=== PATIENT | male | born 1940 | race Caucasian/White ===

== ENCOUNTER 2020-07-02 09:29 | Inpatient (IN) | payer MEDICARE, OTHER ==
[2020-06-29 14:57] LABS: BASOPHILS % 0.3 % (0.0-1.0); EOSINOPHILS # (AUTO) 0.1 (0.0-0.4); EOSINOPHILS % 1.8 % (0.0-6.0); HEMATOCRIT 38.7 % (38.2-49.6); HEMOGLOBIN 12.5 g/dL (14.0-18.0); LYMPHOCYTES # (AUTO) 1.5 (1.0-3.2); LYMPHOCYTES % 24.6 % (18.0-39.1); MEAN CORPUSCULAR HEMOGLOBIN 28.3 pg (28-32); MEAN CORPUSCULAR HGB CONC 32.3 g/dL (31-35); MEAN CORPUSCULAR VOLUME 87.6 fL (81-99); MONOCYTES # (AUTO) 0.7 (0.2-0.8); MONOCYTES % 10.9 % (4.4-11.3); NEUTROPHILS # (AUTO) 3.9 (2.1-6.9); NEUTROPHILS % 62.1 % (38.7-80.0); PLATELET COUNT 140 x10e3/uL (140-360); RED BLOOD COUNT 4.42 x10e6/uL (4.3-5.7); RED CELL DISTRIBUTION WIDTH 14.1 % (11.7-14.4)
[2020-06-29 15:15] LABS: INR 1.23; PROTHROMBIN TIME 16.1 seconds (11.9-14.5)
[2020-06-29 15:43] LABS: ALANINE AMINOTRANSFERASE 16 IU/L (0-55); ALBUMIN 3.8 g/dL (3.5-5.0); ALBUMIN/GLOBULIN RATIO 1.4 (0.8-2.0); ALKALINE PHOSPHATASE 46 IU/L (40-150); ANION GAP 14.5 mmol/L (8-16); BLOOD UREA NITROGEN 23 mg/dL (7-26); BUN/CREATININE RATIO 21 (6-25); CALCIUM 9.2 mg/dL (8.4-10.2); CARBON DIOXIDE 26 mmol/L (22-29); CHLORIDE 104 mmol/L (98-107); CREATININE, SERUM 1.07 mg/dL (0.72-1.25); EST GLOMERULAR FILTRATION RATE > 60 ML/MIN (60-); GLUCOSE 79 mg/dL (74-118); POTASSIUM 4.5 mmol/L (3.5-5.1); SODIUM 140 mmol/L (136-145)
[2020-07-02] VITALS (17 sets, daily range): BP systolic 92–120; BP diastolic 41–77
[~2020-07-02] VITALS: Ht 180.3 cm; Wt 113.4 kg
[~2020-07-02 09:29] MED LIST: ACETAMINOPHEN500 M1 PO; ASPIRIN EC81 MG PO; CALCIUM PO; COQ-10100 MG PO; EMERGEN-C 1,01000 MG PO; FENTANYL CITRATE/PF 100MCG/2 ML INJ ONE; FISH OIL 1,2001 EACH PO; GLUCOSAMINE &1 EACH PO; HAIR SKIN NAIL1 EACH PO; HEPARIN SOD (PORCINE) 1000 UNIT/ML 30ML ONE; HEPARIN SOD/SOD CHLORIDE 2,000 ML ONE; IOPAMIDOL 370 MG/ML 200 ML INFUS..BTL INJ ONE; L-GLUTAMINE25 G1 PO; LASIX20 MG PO; LIDOCAINE HCL 2% LOCAL 20 ML VIAL ONE; LISINOPRIL5 MG PO; MIDAZOLAM HCL 2 MG/2 ML VIAL ONE; MULTIVITAMIN1 EACH PO; NITROGLYCERIN/D5W 200 MCG/ML 250 ML ONE; SODIUM CHLORIDE 0.9% 1000ML 1,000 ML ONE; VERAPAMIL HCL 2.5 MG/ML 2 ML VIAL ONE; VITAMIN B-12500 MCG PO; VITAMIN C1000 MG PO
[2020-07-02] MEDS ORDERED: FUROSEMIDE 40 MG TAB PO SCH (18:00)
[2020-07-02] MEDS: FUROSEMIDE 40 MG TAB PO SCH (20:55)
[2020-07-02] MEDS: EMERGEN C PO SCH (21:00)
[2020-07-02] MEDS: GLUTAMINE PO SCH (21:00)
[2020-07-03] VITALS: BP 103/57
[2020-07-03 04:00] VITALS: BP 116/67
[2020-07-03 05:16] LABS: BASOPHILS % 0.4 % (0.0-1.0); EOSINOPHILS # (AUTO) 0.1 (0.0-0.4); EOSINOPHILS % 1.5 % (0.0-6.0); HEMATOCRIT 39.6 % (38.2-49.6); HEMOGLOBIN 12.6 g/dL (14.0-18.0); LYMPHOCYTES # (AUTO) 1.5 (1.0-3.2); LYMPHOCYTES % 27.9 % (18.0-39.1); MEAN CORPUSCULAR HEMOGLOBIN 27.5 pg (28-32); MEAN CORPUSCULAR HGB CONC 31.8 g/dL (31-35); MEAN CORPUSCULAR VOLUME 86.5 fL (81-99); MONOCYTES # (AUTO) 0.6 (0.2-0.8); MONOCYTES % 12.3 % (4.4-11.3); NEUTROPHILS % 57.5 % (38.7-80.0); PLATELET COUNT 153 x10e3/uL (140-360); RED BLOOD COUNT 4.58 x10e6/uL (4.3-5.7)
[2020-07-03 05:52] LABS: ALANINE AMINOTRANSFERASE 14 IU/L (0-55); ALBUMIN 3.5 g/dL (3.5-5.0); ALBUMIN/GLOBULIN RATIO 1.3 (0.8-2.0); ALKALINE PHOSPHATASE 44 IU/L (40-150); ANION GAP 14.7 mmol/L (8-16); BLOOD UREA NITROGEN 22 mg/dL (7-26); BUN/CREATININE RATIO 26 (6-25); CARBON DIOXIDE 22 mmol/L (22-29); CHLORIDE 108 mmol/L (98-107); CREATININE, SERUM 0.86 mg/dL (0.72-1.25); EST GLOMERULAR FILTRATION RATE > 60 ML/MIN (60-); GLUCOSE 79 mg/dL (74-118); POTASSIUM 4.7 mmol/L (3.5-5.1); SODIUM 140 mmol/L (136-145)
[2020-07-03] MEDS: ASPIRIN 81 MG ENTERIC COATED PO SCH (08:26)
[2020-07-03] MEDS: FUROSEMIDE 40 MG TAB PO SCH ×2 (08:28→17:00)
[2020-07-03] MEDS: [UNRECOGNIZED DRUG - OTHER] PO SCH (08:28)
[2020-07-03] MEDS: COENZYME Q10 100 MG PO SCH (08:28)
[2020-07-03] MEDS: CHONDROITIN PO SCH (08:28)
[2020-07-03] MEDS: GLUCOSAMINE PO SCH (08:28)
[2020-07-03] MEDS: OMEGA 3 POLYUNSAT FATTY ACIDS 1000 MG SOFTGEL PO SCH ×2 (08:28→17:00)
[2020-07-03] MEDS: MULTIVITAMINS/MINERALS TAB PO SCH (08:28)
[2020-07-03] MEDS: CYANOCOBALAMIN 1,000 MCG TAB PO SCH (08:30)
[2020-07-03] MEDS: CALCIUM CARBONATE 500 MG CHEWABLE TABS PO SCH ×2 (08:30→17:00)
[2020-07-03] MEDS: ASCORBIC ACID 500 MG TAB PO SCH ×2 (08:30→17:00)
[2020-07-03] MEDS: LISINOPRIL 2.5 MG TAB PO SCH (08:31)
[2020-07-03 08:37] VITALS: BP 127/72
[2020-07-03] MEDS ORDERED: ACETAMINOPHEN 325 MG TAB PO SCH (09:00)
[2020-07-03 11:51] VITALS: BP 123/67
[2020-07-03] MEDS ORDERED: MIDAZOLAM HCL 2 MG/2 ML VIAL ONE ×3 (14:55→18:14)
[2020-07-03] MEDS ORDERED: FENTANYL CITRATE/PF 100MCG/2 ML INJ ONE (14:55)
[2020-07-03] MEDS ORDERED: LIDOCAINE HCL 2% LOCAL 20 ML VIAL ONE (14:55)
[2020-07-03] MEDS ORDERED: VANCOMYCIN 1GM/NS 250 ML 500 ML ONE (14:56)
[2020-07-03] MEDS ORDERED: SODIUM CHLORIDE 0.9% 500ML 500 ML ONE (14:56)
[2020-07-03] MEDS ORDERED: IOPAMIDOL 300MG/ML 100 ML INFUS..BTL IV ONE (14:57)
[2020-07-03] MEDS ORDERED: SODIUM CHLORIDE 0.9% 1000ML 2,000 ML ONE (14:57)
[2020-07-03 20:00] VITALS: BP 111/72
[2020-07-03] MEDS: EMERGEN C PO SCH (21:00)
[2020-07-03] MEDS: GLUTAMINE PO SCH (21:00)
[2020-07-04] VITALS (8 sets, daily range): BP systolic 112–144; BP diastolic 64–98
[2020-07-04] MEDS: COENZYME Q10 100 MG PO SCH (09:00)
[2020-07-04] MEDS: CHONDROITIN PO SCH (09:00)
[2020-07-04] MEDS: [UNRECOGNIZED DRUG - OTHER] PO SCH (09:00)
[2020-07-04] MEDS: GLUCOSAMINE PO SCH (09:00)
[2020-07-04] MEDS: MULTIVITAMINS/MINERALS TAB PO SCH (09:09)
[2020-07-04] MEDS: OMEGA 3 POLYUNSAT FATTY ACIDS 1000 MG SOFTGEL PO SCH ×3 (09:10→17:27)
[2020-07-04] MEDS: LISINOPRIL 2.5 MG TAB PO SCH (09:11)
[2020-07-04] MEDS: CALCIUM CARBONATE 500 MG CHEWABLE TABS PO SCH ×2 (09:11→17:27)
[2020-07-04] MEDS: CYANOCOBALAMIN 1,000 MCG TAB PO SCH (09:11)
[2020-07-04] MEDS: ASCORBIC ACID 500 MG TAB PO SCH ×2 (09:11→17:27)
[2020-07-04] MEDS: ASPIRIN 81 MG ENTERIC COATED PO SCH (09:12)
[2020-07-04] MEDS: FUROSEMIDE 40 MG TAB PO SCH ×2 (09:12→17:28)
[2020-07-04] MEDS: ACETAMINOPHEN 325 MG TAB PO PRN ×2 (10:15→18:46)
[2020-07-04] MEDS: GLUTAMINE PO SCH (21:00)
[2020-07-04] MEDS: EMERGEN C PO SCH (21:00)
[2020-07-05] VITALS (8 sets, daily range): BP systolic 111–129; BP diastolic 64–85
[2020-07-05] MEDS ORDERED: METOPROLOL SUCCINATE 25 MG TAB XL PO SCH (09:00)
[2020-07-05] MEDS: GLUCOSAMINE PO SCH (09:00)
[2020-07-05] MEDS: CHONDROITIN PO SCH (09:00)
[2020-07-05] MEDS: LISINOPRIL 2.5 MG TAB PO SCH (09:00)
[2020-07-05] MEDS: [UNRECOGNIZED DRUG - OTHER] PO SCH (09:00)
[2020-07-05] MEDS: COENZYME Q10 100 MG PO SCH (09:00)
[2020-07-05] MEDS ORDERED: LISINOPRIL 2.5 MG TAB PO SCH (09:00)
[2020-07-05] MEDS: CALCIUM CARBONATE 500 MG CHEWABLE TABS PO SCH ×2 (09:08→18:23)
[2020-07-05] MEDS: ASPIRIN 81 MG ENTERIC COATED PO SCH (09:08)
[2020-07-05] MEDS: FUROSEMIDE 20 MG TAB PO SCH (09:08)
[2020-07-05] MEDS: ACETAMINOPHEN 325 MG TAB PO PRN (09:08)
[2020-07-05] MEDS: CYANOCOBALAMIN 1,000 MCG TAB PO SCH (09:09)
[2020-07-05] MEDS: ASCORBIC ACID 500 MG TAB PO SCH ×2 (09:10→18:23)
[2020-07-05] MEDS: OMEGA 3 POLYUNSAT FATTY ACIDS 1000 MG SOFTGEL PO SCH ×2 (09:41→18:23)
[2020-07-05] MEDS: MULTIVITAMINS/MINERALS TAB PO SCH (09:41)
[2020-07-05] MEDS: MINOCYCLINE HCL 50 MG CAP PO SCH ×2 (09:41→21:06)
[2020-07-05] MEDS ORDERED: MORPHINE SULFATE 2 MG/ML SYR 1ML IV PRN (15:00)
[2020-07-05] MEDS: GLUTAMINE PO SCH (21:00)
[2020-07-05] MEDS: EMERGEN C PO SCH (21:00)
[2020-07-06] VITALS (7 sets, daily range): BP systolic 94–124; BP diastolic 72–93
[2020-07-06] MEDS: COENZYME Q10 100 MG PO SCH (08:15)
[2020-07-06] MEDS: [UNRECOGNIZED DRUG - OTHER] PO SCH (08:15)
[2020-07-06] MEDS: CHONDROITIN PO SCH (08:15)
[2020-07-06] MEDS: GLUCOSAMINE PO SCH (08:15)
[2020-07-06] MEDS: CALCIUM CARBONATE 500 MG CHEWABLE TABS PO SCH ×2 (08:55→18:44)
[2020-07-06] MEDS: FUROSEMIDE 20 MG TAB PO SCH (08:55)
[2020-07-06] MEDS: MULTIVITAMINS/MINERALS TAB PO SCH (08:55)
[2020-07-06] MEDS: ASCORBIC ACID 500 MG TAB PO SCH ×2 (08:55→18:44)
[2020-07-06] MEDS: OMEGA 3 POLYUNSAT FATTY ACIDS 1000 MG SOFTGEL PO SCH ×2 (08:55→18:44)
[2020-07-06] MEDS: CYANOCOBALAMIN 1,000 MCG TAB PO SCH (08:55)
[2020-07-06] MEDS: ASPIRIN 81 MG ENTERIC COATED PO SCH (08:55)
[2020-07-06] MEDS: MINOCYCLINE HCL 50 MG CAP PO SCH ×2 (08:55→21:18)
[2020-07-06] MEDS: LISINOPRIL 2.5 MG TAB PO SCH (09:17)
[2020-07-06] MEDS: METOPROLOL SUCCINATE 50 MG TAB XL PO SCH (09:18)
[2020-07-06] MEDS: TRAMADOL HCL 50 MG TAB PO PRN ×2 (13:11→21:18)
[2020-07-06] MEDS ORDERED: METOPROLOL SUCCINATE 50 MG TAB XL PO ONE (20:30)
[2020-07-06] MEDS: EMERGEN C PO SCH (21:00)
[2020-07-06] MEDS: GLUTAMINE PO SCH (21:00)
[2020-07-06] MEDS ORDERED: DIGOXIN INJ 0.25 MG/ML 2 ML AMP IV ONE (22:45)
[2020-07-07] VITALS: BP 96/77
[2020-07-07 04:00] VITALS: BP 110/76
[2020-07-07 07:26] VITALS: BP 110/76
[2020-07-07] MEDS: GLUCOSAMINE PO SCH (09:00)
[2020-07-07] MEDS: CHONDROITIN PO SCH (09:00)
[2020-07-07] MEDS: COENZYME Q10 100 MG PO SCH (09:00)
[2020-07-07] MEDS: [UNRECOGNIZED DRUG - OTHER] PO SCH (09:00)
[2020-07-07] MEDS: ASPIRIN 81 MG ENTERIC COATED PO SCH (09:52)
[2020-07-07] MEDS: CALCIUM CARBONATE 500 MG CHEWABLE TABS PO SCH ×2 (09:54→16:55)
[2020-07-07] MEDS: ASCORBIC ACID 500 MG TAB PO SCH ×2 (09:54→16:55)
[2020-07-07] MEDS: LISINOPRIL 2.5 MG TAB PO SCH (09:54)
[2020-07-07] MEDS: CYANOCOBALAMIN 1,000 MCG TAB PO SCH (09:54)
[2020-07-07] MEDS: OMEGA 3 POLYUNSAT FATTY ACIDS 1000 MG SOFTGEL PO SCH ×2 (09:54→16:55)
[2020-07-07] MEDS: METOPROLOL SUCCINATE 50 MG TAB XL PO SCH ×3 (09:54→16:55)
[2020-07-07] MEDS: MINOCYCLINE HCL 50 MG CAP PO SCH ×2 (09:54→21:08)
[2020-07-07] MEDS: MULTIVITAMINS/MINERALS TAB PO SCH (09:54)
[2020-07-07] MEDS: FUROSEMIDE 20 MG TAB PO SCH (09:54)
[2020-07-07 12:00] VITALS: BP 123/95
[2020-07-07] MEDS: AMIODARONE HCL 200 MG TAB PO SCH ×2 (12:03→16:55)
[2020-07-07 16:55] VITALS: BP 110/75
[2020-07-07 20:00] VITALS: BP 102/71
[2020-07-07] MEDS: GLUTAMINE PO SCH (21:00)
[2020-07-07] MEDS: EMERGEN C PO SCH (21:00)
[2020-07-08 00:11] VITALS: BP 100/72
[2020-07-08 04:05] VITALS: BP 91/63
[2020-07-08 07:30] VITALS: BP 107/79
[2020-07-08] MEDS: CHONDROITIN PO SCH (09:00)
[2020-07-08] MEDS: GLUCOSAMINE PO SCH (09:00)
[2020-07-08] MEDS: [UNRECOGNIZED DRUG - OTHER] PO SCH (09:00)
[2020-07-08] MEDS: COENZYME Q10 100 MG PO SCH (09:00)
[2020-07-08] MEDS: ASPIRIN 81 MG ENTERIC COATED PO SCH (09:13)
[2020-07-08] MEDS: FUROSEMIDE 20 MG TAB PO SCH (09:14)
[2020-07-08] MEDS: AMIODARONE HCL 200 MG TAB PO SCH (09:14)
[2020-07-08] MEDS: CYANOCOBALAMIN 1,000 MCG TAB PO SCH (09:15)
[2020-07-08] MEDS: OMEGA 3 POLYUNSAT FATTY ACIDS 1000 MG SOFTGEL PO SCH (09:15)
[2020-07-08] MEDS: MULTIVITAMINS/MINERALS TAB PO SCH (09:15)
[2020-07-08] MEDS: MINOCYCLINE HCL 50 MG CAP PO SCH (09:15)
[2020-07-08] MEDS: CALCIUM CARBONATE 500 MG CHEWABLE TABS PO SCH (09:15)
[2020-07-08] MEDS: ASCORBIC ACID 500 MG TAB PO SCH (09:15)
[2020-07-08] MEDS: LISINOPRIL 2.5 MG TAB PO SCH (09:17)
[2020-07-08] MEDS: METOPROLOL SUCCINATE 50 MG TAB XL PO SCH (09:17)
[2020-07-08 10:13] VITALS: BP 107/79
[2020-07-08 11:00] VITALS: BP 106/80
[2020-07-10] MEDS ORDERED: FUROSEMIDE 40 MG TAB PO SCH (09:00)
== END 2020-07-08 15:44 | DRG 245 ==
LOC: CATH LAB 09:29 → CATH LAB V 14:08 → UNDOADMOB 14:08 → IMCU 16:35 → OBSVTOIN 07-04 14:38
PROVIDERS: ADMIT Internal Medicine Cardiovascular Disease; ATTEND Internal Medicine Cardiovascular Disease
PROC: 4A023N7 Measurement of Cardiac Sampling and Pressure, Left Heart, Percutaneous Approach (ICD-10-PCS; 2020-07-02)
PROC: B2111ZZ Fluoroscopy of Multiple Coronary Arteries using Low Osmolar Contrast (ICD-10-PCS; 2020-07-02)
PROC: 0JH609Z Insertion of Cardiac Resynchronization Defibrillator Pulse Generator into Chest Subcutaneous Tissue and Fascia, Open Approach (ICD-10-PCS; principal; 2020-07-03)
PROC: 02H Heart and Great Vessels, Insertion (ICD-10-PCS; 2020-07-03)
PROC: 02HK0JZ Insertion of Pacemaker Lead into Right Ventricle, Open Approach (ICD-10-PCS; 2020-07-03)
PROC: 02H60JZ Insertion of Pacemaker Lead into Right Atrium, Open Approach (ICD-10-PCS; 2020-07-03)
DX: I42.0 Dilated cardiomyopathy (principal); I50.22 Chronic systolic (congestive) heart failure; I48.92 Unspecified atrial flutter; R00.1 Bradycardia, unspecified; R53.81 Other malaise; I44.7 Left bundle-branch block, unspecified; I11.0 Hypertensive heart disease with heart failure; Z20.828 Contact with and (suspected) exposure to other viral communicable diseases; I25.10 Atherosclerotic heart disease of native coronary artery without angina pectoris
CPT/HCPCS: 33225; 33249; 36415; 71045; 75820; 76937; 80053; 82948; 85025; 85610; 93005; 93454; 97139; 99152; 99153; C1769; C1777; C1882; C1898; C1900; G0378; J1160; J1644; J2001; J2250; J3010; J3370; J7030; J7040; Q9967; U0002

== ENCOUNTER → 2020-09-17 | Day surgery (SDC) | payer MEDICARE ==
[2020-09-14 14:49] LABS: BASOPHILS % 0.5 % (0.0-1.0); EOSINOPHILS # (AUTO) 0.2 (0.0-0.4); EOSINOPHILS % 2.5 % (0.0-6.0); HEMATOCRIT 43.4 % (38.2-49.6); HEMOGLOBIN 14.3 g/dL (14.0-18.0); LYMPHOCYTES # (AUTO) 1.9 (1.0-3.2); LYMPHOCYTES % 24.5 % (18.0-39.1); MEAN CORPUSCULAR HEMOGLOBIN 27.6 pg (28-32); MEAN CORPUSCULAR HGB CONC 32.9 g/dL (31-35); MEAN CORPUSCULAR VOLUME 83.6 fL (81-99); MONOCYTES # (AUTO) 0.9 (0.2-0.8); MONOCYTES % 11.7 % (4.4-11.3); NEUTROPHILS # (AUTO) 4.6 (2.1-6.9); NEUTROPHILS % 60.5 % (38.7-80.0); PLATELET COUNT 187 x10e3/uL (140-360); RED BLOOD COUNT 5.19 x10e6/uL (4.3-5.7); RED CELL DISTRIBUTION WIDTH 15.8 % (11.7-14.4)
[2020-09-14 15:02] LABS: INR 1.16; PROTHROMBIN TIME 15.6 seconds (11.9-14.5)
[2020-09-14 15:09] LABS: ALBUMIN 3.8 g/dL (3.5-5.0); ALBUMIN/GLOBULIN RATIO 1.2 (0.8-2.0); ANION GAP 14.9 mmol/L (8-16); CALCIUM 9.6 mg/dL (8.4-10.2); CREATININE, SERUM 1.65 mg/dL (0.72-1.25); POTASSIUM 3.9 mmol/L (3.5-5.1)
[2020-09-17] VITALS (8 sets, daily range): BP systolic 94–103; BP diastolic 65–69
[~2020-09-17] VITALS: Ht 180.3 cm; Wt 95.3 kg
[~2020-09-17] MED LIST changes: +AMIODARONE HCL200 MG PO; +BENZOCAINE 20% SPR 60 ML CAN ONE; +ELIQUIS2.5 MG PO; -FENTANYL CITRATE/PF 100MCG/2 ML INJ ONE; +FUROSEMIDE40 MG PO; -HEPARIN SOD (PORCINE) 1000 UNIT/ML 30ML ONE; -HEPARIN SOD/SOD CHLORIDE 2,000 ML ONE; -IOPAMIDOL 370 MG/ML 200 ML INFUS..BTL INJ ONE; -LIDOCAINE HCL 2% LOCAL 20 ML VIAL ONE; +LIDOCAINE HCL 2% LOCAL INJ 5 ML SDV VIAL INJ ONE; +LISINOPRIL2.5 MG PO; +METOPROLOL SUCC50 MG PO; -MIDAZOLAM HCL 2 MG/2 ML VIAL ONE; -NITROGLYCERIN/D5W 200 MCG/ML 250 ML ONE; +PROPOFOL IV EMULSION 10 MG/ML 20 ML VIAL ONE; -VERAPAMIL HCL 2.5 MG/ML 2 ML VIAL ONE
== END | disposition home or self-care (01) ==
LOC: CATH LAB 08:27
PROVIDERS: ATTEND Internal Medicine Cardiovascular Disease
DX: I48.91 Unspecified atrial fibrillation (principal); I35.1 Nonrheumatic aortic (valve) insufficiency; I34.0 Nonrheumatic mitral (valve) insufficiency; I25.118 Atherosclerotic heart disease of native coronary artery with other forms of angina pectoris; I45.4 Nonspecific intraventricular block; I48.92 Unspecified atrial flutter; R94.31 Abnormal electrocardiogram [ECG] [EKG]; I11.0 Hypertensive heart disease with heart failure; I50.21 Acute systolic (congestive) heart failure; G47.33 Obstructive sleep apnea (adult) (pediatric); Z88.7 Allergy status to serum and vaccine; Z01.812 Encounter for preprocedural laboratory examination; Z20.822 Contact with and (suspected) exposure to COVID-19; Z79.82 Long term (current) use of aspirin; Z79.02 Long term (current) use of antithrombotics/antiplatelets
CPT/HCPCS: 36415; 80053; 85025; 85610; 92960; 93005; 93307; 93325; J2001; J2704; J7030; U0002; 93312; 93320